=== PATIENT | male | born 1980 | race Caucasian/White ===

== ENCOUNTER 2016-11-17 16:03 | Emergency (ER) | payer OTHER ==
[~2016-11-17] VITALS: Wt 83.9 kg
== END 2016-11-17 18:15 | disposition home or self-care (01) ==
LOC: ED 16:03
DX: S80.11XA Contusion of right lower leg, initial encounter (principal); F17.200 Nicotine dependence, unspecified, uncomplicated; Z88.0 Allergy status to penicillin; Z88.2 Allergy status to sulfonamides; W20.8XXA Other cause of strike by thrown, projected or falling object, initial encounter; Y93.89 Activity, other specified; Y92.89 Other specified places as the place of occurrence of the external cause; Y99.8 Other external cause status